=== PATIENT | female | born 1995 | race African-American/Black ===

== ENCOUNTER → 2016-07-01 | Outpatient (CLI) | payer OTHER ==
[~2016-07-01] MED LIST: PRENTAB26 PO
[2016-07-03 15:25] LABS: CHLAMYDIA TRACH RNA*** NOT DETECTED (NOT DETECTED); GC (NEIS GONORRHOEAE)RNA** NOT DETECTED (NOT DETECTED)
== END | disposition home or self-care (01) ==
LOC: C.LABSPEC 15:00
PROVIDERS: ATTEND Obstetrics & Gynecology
DX: Z34.81 Encounter for supervision of other normal pregnancy, first trimester (principal)

== ENCOUNTER → 2016-07-01 | Outpatient (CLI) | payer OTHER | END | disposition home or self-care (01) | LOC: C.PAPS 15:23 | PROVIDERS: ATTEND Obstetrics & Gynecology | DX: Z34.81 Encounter for supervision of other normal pregnancy, first trimester (principal); R87.619 Unspecified abnormal cytological findings in specimens from cervix uteri ==

== ENCOUNTER 2016-09-19 20:49 | Outpatient (CLI) | payer OTHER ==
[~2016-09-19] VITALS: Ht 170.2 cm; Wt 124.7 kg
[2016-09-19 21:17] VITALS: Ht 170.2 cm; Wt 124.7 kg
--- NOTE | 2016-09-19 23:04 | HISTORY & PHYSICAL EXAMINATION ---
DATE OF ADMISSION: 09/19/2016 CHIEF COMPLAINT: Loss of mucus plug, intrauterine 21 weeks 2 days. HISTORY OF PRESENT ILLNESS: The patient is a 21-year-old 2, para 1. Present has been well dated and her due date is 01/28/2017. Her first went to term, she had a for distress. With her present , her first ultrasound showed abdominal contents of the fetus outside the abdominal cavity and she is being scheduled for a high-risk OB visit at [facility] this coming Thursday. She called about 7:00 p.m. the day of admission, stated that she thought she lost her mucus plug. She was then told to come to the hospital for evaluation. MEDICAL HISTORY: She has a boy, 2 years old, in good health. ALLERGIES: No known drug allergies. SURGICAL HISTORY: She had a previous . She has had a T&A and she has had wisdom teeth removed. SOCIAL HISTORY: No smoking. No alcohol intake. FAMILY HISTORY: Mom is 34, father 40. She has got multiple brothers and sisters, all in good health. REVIEW OF SYSTEMS: HEAD: No symptoms of frequent or severe headaches. EYES: No symptoms of blurred vision or double vision. EARS: No symptoms of frequent ear infections, difficulty hearing. PHYSICAL EXAMINATION: GENERAL: Well-developed, well-nourished 21-year-old black female, alert, oriented x3 and cooperative, no acute distress, appears her stated age. EYES: Conjunctivae are pink. Sclerae white. No evidence of jaundice. EARS: Normal light reflex bilaterally. HEART: Regular rhythm. S1 and S2 are normal. LUNGS: Clear to auscultation and percussion. BREASTS: Exam is normal. ABDOMEN: Consistent with a 21-week size fetus. There is no tenderness. Well-healed Pfannenstiel scar. PELVIC: Exam reveals the cervix to be firm, posterior, closed, and at the time of examination, the patient was noted to have a Monilia yeast infection. MUSCULOSKELETAL: Exam reveals no calf tenderness. IMPRESSIONS OF THIS CASE: Previous , previous tonsillectomy and adenoidectomy, previous removal of wisdom teeth. Present complicated by anomaly and rule out early dilatation of the cervix.
== END 2016-09-19 22:05 | disposition home or self-care (01) ==
LOC: C.OPB 20:49 → C.LD 20:49 → C.OPB 22:05
PROVIDERS: ATTEND Obstetrics & Gynecology
DX: O26.893 Other specified pregnancy related conditions, third trimester (principal); O35.9XX0 Maternal care for (suspected) fetal abnormality and damage, unspecified, not applicable or unspecified; Z3A.21 21 weeks gestation of pregnancy

== ENCOUNTER 2016-11-07 20:30 | Outpatient (CLI) | payer OTHER ==
[~2016-11-07] VITALS: Ht 170.2 cm; Wt 127.3 kg
--- NOTE | 2016-11-07 21:55 | DIAGNOSTIC IMAGING REPORT ---
TRANSVAGINAL HISTORY: 21 years-old Female cervical length only per [facility] cervical length study in a patient. Clinical history of gastroschisis. COMPARISON: None available TECHNIQUE: Multiple real-time sonographic images of the pelvis were obtained transvaginally assessing grayscale appearance. FINDINGS: Cervical length is 4.8 cm and is closed. There is trace fluid within the endocervical canal. structure is noted in the lower uterine segment abutting the internal cervical os. No additional pelvic structures were imaged secondary to ordering physician only desiring images of the cervix. IMPRESSION: Mild fluid is noted within a closed cervix which measures up to 4.8 cm in length. The above report was generated using voice recognition software. It may contain grammatical, syntax or spelling errors. Electronically signed by: Car Harper M.D. 11/07/2016 9:53 PM Dictated Date/Time: 11/07/2016 9:51 PM
[2016-11-07 22:17] VITALS: Ht 170.2 cm; Wt 127.3 kg
--- NOTE | 2016-11-07 23:11 | HISTORY & PHYSICAL EXAMINATION ---
DATE OF ADMISSION: 11/07/2016 CHIEF COMPLAINT: Intrauterine at 28 weeks gestation, vaginal spotting. HISTORY OF PRESENT ILLNESS: The patient is a 21-year-old 3, para 1. She had 1 spontaneous AB and she had a for her first delivery because of a tight nuchal cord. Her present has been well dated. Her due date is 01/28/2017. 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 She is also being followed at [facility] and this has been confirmed at [facility] by ultrasound. She is about 28 weeks' gestation. She said she has had some lower pain and spotting, was told to come in to the maternity for evaluation. After arrival in maternity, she was taken to the ultrasound where her cervical length was 4.8 cm. PAST MEDICAL HISTORY: No known drug allergies. PAST SURGICAL HISTORY: She has had a T&A. She has had wisdom teeth removed. She had a . She has a boy 2 years old in good health. She has no significant medical problems. SOCIAL HISTORY: No smoking. No alcohol intake. Works at [employer], goes to school. FAMILY HISTORY: Mom is 38 in good health. Father 40 in good health. 12 brothers and sisters. No significant medical problems. REVIEW OF SYSTEMS: HEAD: No symptoms of frequent or severe headaches. EYES: No symptoms of blurred vision, double vision. EARS: No symptoms of frequent ear infection, difficulty hearing. PHYSICAL EXAMINATION: GENERAL: Well-developed, well-nourished 21-year-old female, alert, oriented x3 and cooperative in no acute distress, appears stated age. EYES: Conjunctivae are pink. Sclerae white. No evidence of jaundice. EARS: Had normal light reflex bilaterally. NOSE: Had normal mucosa. Septum is midline. HEART: Regular rhythm. S1 and S2 are normal. BREASTS: Exam was normal. ABDOMEN: Soft and nontender. No uterine tenderness. No CVA tenderness. Well-healed Pfannenstiel scar. PELVIC: Presenting part floating. Cervix posterior, long, closed, uneffaced, firm. No blood on examining glove. IMPRESSIONS OF THIS CASE: Status post T&A, status post wisdom teeth removal, status post . diagnosis of gastroschisis and rule out premature labor, intrauterine 28 weeks 2 days.
== END 2016-11-07 22:04 | disposition home or self-care (01) ==
LOC: C.OPB 20:30 → C.LD 20:30 → C.OPB 22:04
PROVIDERS: ATTEND Obstetrics & Gynecology
DX: O26.853 Spotting complicating pregnancy, third trimester (principal); O36.8930 Maternal care for other specified fetal problems, third trimester, not applicable or unspecified; Z3A.28 28 weeks gestation of pregnancy

== ENCOUNTER → 2016-12-02 | Outpatient (CLI) | payer OTHER ==
[2016-12-02 15:12] LABS: URINE APPEARANCE TURBID (CLEAR); URINE BILIRUBIN NEG (NEG); URINE COLOR YELLOW; URINE EPITHELIAL CELL AUTO >30 /lpf (0-5); URINE NITRITE NEG (NEG); URINE PH >= 9.0 (4.5-7.5); UROBILINOGEN NEG (NEG)
[2016-12-02 15:14] LABS: MANUAL MICROSCOPIC REQUIRED? NO; REVIEW REQ? NO
== END | disposition home or self-care (01) ==
LOC: C.LABSPEC 14:36
PROVIDERS: ATTEND Obstetrics & Gynecology
DX: R80.9 Proteinuria, unspecified (principal)

== ENCOUNTER 2017-01-16 12:18 | Inpatient (IN) | payer OTHER ==
[~2017-01-16] VITALS: Ht 172.7 cm; Wt 132.0 kg
[~2017-01-16 12:18] MED LIST changes: +CEFAZOLIN IV 3,000 MG in SYRINGE 0 ML IV SCH
[2017-01-16] MEDS ORDERED: LACTATED RINGER'S 1000ML 1,000 ML IV SCH ×2 (12:52→16:55)
[2017-01-16] MEDS ORDERED: LACTATED RINGER'S 1000ML 500 ML IV ONE (12:52)
[2017-01-16 13:28] LABS: MEAN CELL VOLUME 79.9 fL (80-100); MEAN CORPUSCULAR HEMOGLOBIN 27.4 pg (25-34); MEAN CORPUSCULAR HGB CONC 34.3 g/dl (32-36); RED BLOOD COUNT 4.63 M/uL (4.2-5.4); WHITE BLOOD COUNT 9.04 K/uL (4.8-10.8)
[2017-01-16 13:37] LABS: POTASSIUM 3.8 mmol/L (3.5-5.1)
[2017-01-16 14:01] LABS: MEAN PLATELET VOLUME 11.6 fL (7.4-10.4); PLATELET COUNT 103 K/uL (130-400)
[2017-01-16 14:02] LABS: BASO % 0.2 %; BASO ABS # 0.02 K/uL (0-0.2); COMPLETE YES; EOS % 2.1 %; IG% 0.6 %; LYMPH % 20.6 %; LYMPH ABS # 1.86 K/uL (1.2-3.4); MONO % 5.8 %; NEUT % 70.7 %; PLT ESTIMATE DECREASED
[2017-01-16] MEDS ORDERED: CITRIC ACID/SODIUM CITRATE 15 ML UDC PO ONE (14:15)
[2017-01-16] MEDS ORDERED: FENTANYL CITRATE INJ 50 MCG/1 ML 2 ML VIAL ONE (15:02)
[2017-01-16] MEDS ORDERED: MORPHINE SULFATE 1MG/1ML 30ML VIAL IV ONE (15:02)
--- NOTE | 2017-01-16 15:36 | HISTORY & PHYSICAL EXAMINATION ---
DATE OF ADMISSION: 01/16/2017 HISTORY OF PRESENT ILLNESS: The patient is a 21-year-old G2, P1 at 38 and 2 weeks, whose has been complicated by gastroschisis. The patient has been seen by maternal medicine. She had previous section and was scheduled to have trial of labor at [facility] on Thursday01/23/2017. The patient was seen today for routine care in the office. She had an NST which showed tachycardia, 170s. The patient had biophysical profile which was 6 out of 8, breather was absent. The patient was sent to labor and delivery for evaluation. On arrival to labor and delivery, heart rate was in the 170s, viability was rather decreased. She was started on IV fluids. viability has improved and is presently moderate. heart rate is still in the 170s. There is no fever or chills, no rupture of membranes, no bloody show. I spoke to Dr. Green, maternal medicine at [facility] and recommendation is to perform a section and deliver the and have the infant transferred to [facility]. Effort are being made to get the pediatric team at [facility] here before the . While patient had been in labor and delivery, she has had 2 episodes of what appears to be late decelerations, both were successfully done. heart rate continues to be in the 170s with moderate variability. PAST MEDICAL HISTORY: Obesity. PAST SURGICAL HISTORY: 1. She has had 1 section in 2014. 2. History of tonsillectomy. 3. Dental surgery. ALLERGIES: No known drug allergies. SOCIAL HISTORY: The patient denies tobacco, drug or alcohol use. FAMILY HISTORY: Noncontributory. PHYSICAL EXAMINATION: GENERAL: Well-developed, well-nourished black female in no acute distress. HEART: S1, S2, regular rhythm and rate. LUNGS: Clear to auscultation bilaterally. ABDOMEN: Gravid. PELVIC: Fingertip. EXTREMITIES: No cyanosis, clubbing or edema. ASSESSMENT AND PLAN: A 21-year-old 2, para 1 at 38 and 2 weeks, status post gastroschisis. heart rate shows tachycardia. The patient has had previous section. The patient was originally scheduled for delivery in [place], I have spoken to maternal medicine, recommendation is to perform a section and attempts are being made to get the pediatric NICU team here at [facility] to care MTDD
[2017-01-16] MEDS ORDERED: MISOPROSTOL 200 MCG TAB ONE (16:40)
[2017-01-16] MEDS ORDERED: OXYTOCIN INJ 10 UNITS/ML VIAL ONE (16:49)
[2017-01-16] MEDS ORDERED: KETOROLAC TROMETHAMINE 30 MG/ML VIAL ONE (16:49)
[2017-01-16] MEDS ORDERED: OXYTOCIN INJ 20 UNITS in LACTATED RINGER'S 1000ML 1,000 ML IV SCH (16:55)
[2017-01-16] MEDS ORDERED: HYDROCORTISONE ACETATE 25 MG SUPP PR PRN (17:00)
[2017-01-16] MEDS ORDERED: MAGNESIUM HYDROXIDE SUSP 30 ML UDC PO PRN (17:00)
[2017-01-16] MEDS ORDERED: SENNA 8.6 MG TAB PO PRN (17:00)
[2017-01-16] MEDS: SIMETHICONE 80 MG CHEW PO SCH ×3 (17:00→20:44)
[2017-01-16] MEDS ORDERED: SUPERCREAM 0.870 % 15GM JAR EXT PRN (17:00)
[2017-01-16] MEDS ORDERED: BENZOCAINE 20% AER SPR 82.5 GM CAN EXT PRN (17:00)
[2017-01-16] MEDS ORDERED: LANOLIN OINT EXT PRN ×2 (17:00)
[2017-01-16 19:14] VITALS: Ht 172.7 cm; Wt 132.0 kg
[2017-01-16 20:00] VITALS: O2SAT 97
[2017-01-16] MEDS ORDERED: SODIUM CHLORIDE 0.9% 1000ML 1,000 ML IV PRN (20:01)
[2017-01-16] MEDS ORDERED: NALOXONE HCL INJ 1 MG in SODIUM CHLORIDE 0.9% 1000ML 1,000 ML IV PRN (20:01)
[2017-01-16] MEDS ORDERED: NALOXONE HCL INJ 0.08 MG in SYRINGE 1.8 ML IV PRN (20:01)
[2017-01-16] MEDS ORDERED: LACTATED RINGER'S 1000ML 500 ML IV PRN (20:01)
--- NOTE | 2017-01-16 20:14 | Anesthesiology Progress Note ---
Anesthesia Post Op Note Date & Time Jan 16, 2017 at 20:14 Notes Mental Status: alert / awake / arousable, participated in evaluation Pt Amnestic to Procedure: Yes Nausea / Vomiting: adequately controlled Pain: adequately controlled Airway Patency, RR, SpO2: stable & adequate BP & HR: stable & adequate Hydration State: stable & adequate Neuraxial Anesthesia: was administered, sensory block is resolving Anesthetic Complications: no major complications apparent
[2017-01-16] MEDS ORDERED: PROMETHAZINE HCL INJ 25 MG in SODIUM CHLORIDE 0.9% 50ML 50 ML IV PRN (20:15)
[2017-01-16] MEDS ORDERED: NALBUPHINE HCL INJ 10 MG/ML AMP IV PRN (20:15)
[2017-01-16] MEDS ORDERED: NO NARCOTICS OR SEDATIVES SCH (20:15)
[2017-01-16] MEDS ORDERED: KETOROLAC TROMETHAMINE 30 MG/ML VIAL IV. PRN (20:15)
[2017-01-16] MEDS ORDERED: ONDANSETRON INJ 2 MG/ML 2 ML VIAL IV PRN (20:15)
[2017-01-16] MEDS ORDERED: NALOXONE HCL 0.4 MG/1 ML VIAL/CARP IV PRN (20:15)
[2017-01-16] MEDS ORDERED: MoRPHine SULFATE PF 1 MG/ML 10 ML AMP/VIAL EPI PRN (20:15)
[2017-01-16] MEDS ORDERED: EpHEDrine SULFATE INJ 50 MG/ML AMP IV PRN (20:15)
[2017-01-16] MEDS ORDERED: DiphenhydrAMINE HCL 50 MG/ML VIAL IV PRN (20:15)
[2017-01-16] MEDS ORDERED: MoRPHine SULFATE 2 MG/ML CARP IV PRN (20:15)
[2017-01-16 20:30] VITALS: BP 127/68; PULSE 77; TEMP 36.8; O2SAT 99
[2017-01-16] MEDS: DOCUSATE SODIUM 100 MG CAP PO SCH (20:44)
[2017-01-16] MEDS: DiphenhydrAMINE HCL 50 MG/ML VIAL IV PRN (20:45)
[2017-01-16 21:00] VITALS: O2SAT 98
--- NOTE | 2017-01-16 21:57 | OPERATIVE REPORT ---
DATE OF OPERATION: 01/16/2017 INDICATION FOR SURGERY: This is a 21-year-old G2, P2, at 38+ weeks. The fetus has a known gastroschisis and was scheduled to be induced at [facility] on 01/21/2017. The patient was seen in the office today. heart rate showed tachycardia, BPP was 8/8. Decision was, therefore, made to admit the patient in labor and delivery. This was reviewed with maternal medicine in [place] and the recommendation was to perform section. The NICU team from [place] was here for this . PREOPERATIVE DIAGNOSES: 1. at term. 2. Fetus with gastroschisis. 3. Nonreassuring heart rate. POSTOPERATIVE DIAGNOSES: Same plus thick meconium. SURGEON: Marvel Graves MD. ADMINISTRATIVE OFFICE ASSISTANT: Dr. Dewey. ESTIMATED BLOOD LOSS: 1000 mL IV FLUIDS: 1500 mL URINE: 400 mL clear urine at the end of the procedure. FINDINGS: Live infant. Weight and Apgars are in the pediatric record. Baby has bowels outside the abdomen. Uterus, adnexa are all within normal. COMPLICATIONS: None. DRAINS: None. PATHOLOGY: Cord gas, cord blood and placenta. DISPOSITION: Stable to recovery room. DESCRIPTION OF PROCEDURE: The patient was taken to the operating room where she was prepped and draped in normal sterile fashion. Timeout was called. A Pfannenstiel incision was made and carried down to the fascia. Fascia was incised in the midline and extended laterally on both sides. The fascia was dissected off the rectus abdominus muscle. Peritoneum was identified. Abdomen was entered. Once inside the abdomen, an Piotr retractor was placed in the abdomen for retraction. Vesicouterine peritoneum was dissected off the lower segment of the uterus. A transverse incision was made on the uterus and extended laterally on both sides. Infant was delivered atraumatically, cord clamped, and handed over to the awaiting pediatric team. Placenta was manually removed. Uterus was exteriorized and cleared of all clots and debris. Uterus was closed in 2 layers with 0 Vicryl. There was good hemostasis at the end of the closure. Adnexa and both ovaries were seen, identified and appeared grossly normal. The vesicouterine peritoneum was closed with plain suture. Copious amount of irrigation was used to irrigate the abdomen. The Piotr retractor was removed and peritoneum was closed in a running fashion with plain suture. [id number] sutures were used to approximate the rectus abdominus muscle. Fascia was closed in a running fashion using PDS suture. Copious amount of irrigation was used to irrigate the subcu space, plain suture used to reapproximate the subcu space and skin was closed with ann. All instruments were removed from the abdomen and accounted for x2 including sponges and needles. The patient was sent to recovery in stable condition. I attest to the content of the Intraoperative Record and any orders documented therein. Any exception s are noted below.
[2017-01-16 22:00] VITALS: O2SAT 98
[2017-01-16] MEDS: MEPERIDINE HCL 25 MG/ML CARP IV PRN (22:11)
[2017-01-16 23:00] VITALS: O2SAT 97
[2017-01-17] VITALS (14 sets, daily range): BP systolic 114–133; BP diastolic 50–82; PULSE 80–92; TEMP 36.5–37.2; O2SAT 97–100
[2017-01-17] MEDS: MEPERIDINE HCL 25 MG/ML CARP IV PRN (03:25)
[2017-01-17] MEDS: DiphenhydrAMINE HCL 50 MG/ML VIAL IV PRN (03:26)
[2017-01-17 06:20] LABS: HEMATOCRIT 34.8 % (37-47); MEAN CORPUSCULAR HEMOGLOBIN 26.4 pg (25-34); RED BLOOD COUNT 4.35 M/uL (4.2-5.4); WHITE BLOOD COUNT 10.13 K/uL (4.8-10.8)
[2017-01-17 06:21] LABS: MEAN PLATELET VOLUME 11.6 fL (7.4-10.4); PLATELET COUNT 76 K/uL (130-400)
[2017-01-17 07:17] LABS: BASO % 0.1 %; BASO ABS # 0.01 K/uL (0-0.2); COMPLETE YES; IG% 0.3 %; LYMPH % 12.6 %; LYMPH ABS # 1.28 K/uL (1.2-3.4); MONO % 7.1 %; NEUT % 78.9 %
[2017-01-17] MEDS: SIMETHICONE 80 MG CHEW PO SCH ×4 (07:47→19:28)
[2017-01-17] MEDS: DOCUSATE SODIUM 100 MG CAP PO SCH ×2 (07:47→19:28)
[2017-01-17] MEDS: FERROUS SULFATE 325 MG TAB PO SCH (07:47)
--- NOTE | 2017-01-17 08:37 | OB/GYN Progress Note ---
PHOTOGRAMMETRIC TECHNICIAN Progress Note Date of Service: Jan 17, 2017. Patient is seen and examined. She feels well, no complaints. Pain is under control with meds. Not OOB yet Leon catheter is in Tolerating clear diet with out N&V Flatus neg BM neg Bleeding is minimal No fever/ chills/ CP/ SOB/ N&V/ Leg pain Plans to breast feed, pumping now Her baby was transferred to [facility] NICU for gastroschisis Date Time Temp Pulse Resp B/P (MAP) Pulse Ox O2 Delivery O2 Flow Rate FiO2 01/17/17 06:00 18 98 01/17/17 05:00 18 97 01/17/17 04:10 36.8 92 18 132/79 (96) 98 Room Air 01/17/17 04:00 18 97 01/17/17 03:00 18 97 01/17/17 02:00 18 97 01/17/17 01:00 16 98 01/17/17 00:00 16 97 01/17/17 00:00 36.9 84 18 130/82 (98) 98 Room Air 01/16/17 23:00 16 97 01/16/17 22:00 18 98 01/16/17 21:00 16 98 01/16/17 20:30 36.8 77 16 127/68 (87) 99 Room Air 01/16/17 20:00 18 97 PE: General: Alert, orientedx3, NAD CVS: S1S2 RRR Lungs; CTAB Abd: soft, NT, BS+, ND, fundus firm, below Umbilicus Dressing: Clean, dry, intact Perineum intact, Lochia rubra minimal Ext; NT, no edema AP: 21 yo s/p C Section, pod# 1 VSS Afebrile doing well Continue routine postop care Encourage ambulation, PO intake All questions were answered
[2017-01-17] MEDS ORDERED: DiphenhydrAMINE HCL 50 MG/ML VIAL IV PRN (09:00)
[2017-01-17] MEDS ORDERED: PROMETHAZINE HCL INJ 25 MG in SODIUM CHLORIDE 0.9% 50ML 50 ML IV PRN (09:00)
[2017-01-17] MEDS ORDERED: ONDANSETRON INJ 2 MG/ML 2 ML VIAL IV PRN (09:00)
[2017-01-17] MEDS ORDERED: KETOROLAC TROMETHAMINE 30 MG/ML VIAL IV. PRN (09:00)
[2017-01-17] MEDS ORDERED: OXYCODONE/ACETAMINOPHEN 5-325 TAB PO PRN (09:00)
[2017-01-17] MEDS ORDERED: MEPERIDINE HCL 50 MG/ML CARP IV PRN ×2 (09:00)
[2017-01-17] MEDS ORDERED: DC INTRASPINAL MORPHINE ONE (09:00)
[2017-01-17] MEDS: IBUPROFEN 600 MG TAB PO PRN ×3 (09:15→22:10)
[2017-01-17] MEDS: OXYCODONE/ACETAMINOPHEN 5-325 TAB PO PRN ×2 (09:15→14:03)
[2017-01-17] MEDS ORDERED: BISACODYL 5 MG TABEC PO ONE (22:00)
[2017-01-18] MEDS: OXYCODONE/ACETAMINOPHEN 5-325 TAB PO PRN ×3 (00:04→08:09)
[2017-01-18 00:05] VITALS: BP 117/77; PULSE 92; TEMP 36.6; O2SAT 98
[2017-01-18] MEDS: IBUPROFEN 600 MG TAB PO PRN ×2 (03:04→08:11)
[2017-01-18 03:20] LABS: URINE APPEARANCE CLEAR (CLEAR); URINE BILIRUBIN NEG (NEG); URINE COLOR YELLOW; URINE NITRITE NEG (NEG); URINE SPECIFIC GRAVITY 1.012 (1.000-1.030); UROBILINOGEN NEG (NEG); ZZUR CULT IF INDIC CLEAN CATCH NO
[2017-01-18 03:25] LABS: MANUAL MICROSCOPIC REQUIRED? NO; REVIEW REQ? NO
[2017-01-18 07:11] LABS: HEMATOCRIT 32.7 % (37-47)
[2017-01-18 07:43] VITALS: BP 101/53; PULSE 75; TEMP 36.7
[2017-01-18] MEDS: SIMETHICONE 80 MG CHEW PO SCH (08:06)
[2017-01-18] MEDS: DOCUSATE SODIUM 100 MG CAP PO SCH (08:08)
[2017-01-18] MEDS: FERROUS SULFATE 325 MG TAB PO SCH (08:08)
--- NOTE | 2017-01-18 09:47 | OB/GYN Progress Note ---
HOSPITAL CHIEF EXECUTIVE OFFICER Progress Note Date of Service: Jan 18, 2017. Patient is seen and examined. She feels well, no complaints. Likes to be discharged so that she can go and see her baby at [facility] She is having surgery this morning Pain is under control with oral meds. Ambulating without dizziness Voiding without difficulty Tolerating regular diet with out N&V Flatus + BM neg Bleeding is minimal No fever/ chills/ CP/ SOB/ N&V/ Leg pain Pumping breast milk Date Time Temp Pulse Resp B/P (MAP) Pulse Ox O2 Delivery O2 Flow Rate FiO2 01/18/17 07:43 36.7 75 18 101/53 (69) Room Air 01/18/17 00:05 36.6 92 20 117/77 (90) 98 Room Air 01/18/17 00:05 98 Room Air 01/17/17 16:40 36.5 87 16 114/50 (71) 100 Room Air 01/17/17 16:40 100 Room Air 01/17/17 12:00 36.7 80 24 133/79 (97) 98 Room Air Last 24 Hours Test 01/18/17 03:05 01/18/17 06:48 Urine Color YELLOW Urine Appearance CLEAR Urine pH 5.0 Urine Specific Ruth 1.012 Urine Protein NEG Urine Glucose (UA) NEG Urine Ketones NEG Urine Occult Blood 1+ Urine Nitrite NEG Urine Bilirubin NEG Urine Urobilinogen NEG Urine Leukocyte Esterase NEG Urine WBC (Auto) 1-5 /hpf Urine RBC (Auto) 0-4 /hpf Urine Hyaline Casts (Auto) 1-5 /lpf Urine Epithelial Cells (Auto) 5-10 /lpf Urine Bacteria (Auto) NEG Hemoglobin 10.8 g/dL Hematocrit 32.7 % PE: General: Alert, orientedx3, NAD CVS: S1S2 RRR Lungs; CTAB Abd: soft, NT, ND, BS+, fundus firm, below Umbilicus Incision: Clean, dry, intact Perineum intact, Lochia rubra minimal Ext; NT, no edema AP: 21 yo s/p C Section, pod# 2 VSS Afebrile doing well Continue routine postop care Encourage ambulation, PO intake All questions were answered Instructions were given when to call D/C home , f/u in office
[2017-01-18] MEDS ORDERED: OXYC-57 PO (09:49)
[2017-01-18] MEDS ORDERED: MTR600X PO (09:49)
--- NOTE | 2017-01-18 09:50 | Discharge Instructions ---
Discharge Instructions Date of Service Jan 18, 2017. Admission Reason for Admission: NST Discharge Discharge Diagnosis / Problem: RCS Discharge Goals Goal(s): Routine recovery after Medications Continue Dispensed Medications: lansinoh Activity Recommendations Activity Limitations: as noted below ACTIVITY RECOMMENDATIONS: * Gradual return to full activity over the next 2-3 weeks. * No lifting - nothing heavier than baby over the next 2-3 weeks. * Do not engage in vigorous exercise, sexual activity or sports until cleared by your physician. * Do not drive or operate any motorized equipment until cleared by your physician. * You may shower/bathe daily. BREAST CARE: If you are not breast feeding: * Wear a supportive bra 24 hours a day for one to two weeks. * Avoid stimulating your breasts and nipples as much as possible during the first few weeks after delivery. * When taking a shower, have the warm water hit your back, not breasts. * When your breasts feel full, apply ice packs. Usually three to four times a day helps ease the discomfort. * Take a mild pain medication (Tylenol/Motrin) when you are uncomfortable. If breast feeding: * Use breast milk to lubricate nipples. Lansinoh cream may be used for sore nipples. You do not need to remove cream prior to breast feeding. If using a different brand of cream, check the label for directions regarding removal of cream prior to nursing. * Wear a supportive bra. * If having problems with breasts or breast feeding, call a senior consultant or your health care provider. OVER THE COUNTER MEDICATION: * For discomfort or pain, you may use Acetaminophen (Tylenol), Ibuprofen (Advil ), or Naproxen (Aleve) following the package directions. * For constipation you may use Colace following the package directions. SPECIAL CARE INSTRUCTIONS: When you are discharged from the hospital, it is important for you to follow the instructions listed below: * During the first week at home, you should be able to care for yourself and your baby. In addition, the usual light household activities are encouraged. * Limit your activities to the way you feel. Do not try to clean the house or move furniture. Be sensible. * If you actively engage in sports and have done so up until the time of your delivery, you may resume these activities as soon as you feel able. This may take up to one month or even longer. Use good judgment. * Continue to take your vitamins for at least six weeks after the of your baby. * Your diet need not be limited unless you were on a special diet before your delivery. Breast-feeding mothers need around 2500 calories per day and at least 64-80 ounces of fluid per day (8 to 10 glasses). * You should eat foods from the four major food groups. Crash diets or fad diets are to be avoided. Eating lean meats, fresh fruits and vegetables, low-fat dairy products, high fiber foods and a regular exercise program, will help you get back to your pre- weight without putting your health at risk. * Constipation is sometimes a problem after delivery. Take a mild laxative as needed. If breast feeding, Milk of Magnesia is acceptable to use. You may use a suppository or Fleets enema if no episiotomy. * A daily shower or tub bath is suggested. Be sure to thoroughly and gently dry the perineum. * A bloody vaginal discharge will usually continue until around four weeks post . A small amount of bleeding may continue for as long as six weeks. Vaginal discharge changes from the bright red bleeding after delivery to pink then brownish and finally yellowish-pink before becoming white and disappearing. * Bleeding may increase with activity. Your first period may come in 4-8 weeks. If you are breast feeding, your period may be delayed even longer. * [place] (sex) can begin whenever both you and your partner feel comfortable and do not have any form of genital infection. It is recommended that you wait at least six weeks for internal and external healing to occur. If you have questions, please talk to your health care practitioner. A condom should be used to prevent infection and . * Foreplay, gentle intercourse and lubrication is very important the first several times to prevent pain. A water-based lubricant such as K-Y jelly or Astroglide may be used. * Tampons and/or Douching should be avoided until after six weeks check-up. * If you have RH negative blood and your baby is RH positive, you will receive RHOGAM by injection prior to discharge. The nurse will give you a card to keep with you that has the date and place that you received RHOGAM after delivery. * During your care, you had a Rubella screen done to check for the presence of rubella antibodies in your blood. If your test was negative, you will receive a Rubella vaccine prior to discharge. This vaccine may cause a fever, soreness at the injection site and flu-like symptoms. If these symptoms persist, notify your health care practitioner. is not advised for three months after a Rubella vaccine. * Verbalizes understanding of car seat law as reviewed with patient nursing. * Car Seat hand-out given and reviewed with patient by nursing. * Shaken baby information reviewed with patient by nursing. Call you doctor if: * Heavy bleeding (saturating several pads an hour) or passing clots the size of your fist. * A fever >101 degrees F (38.3 degrees C) on two occasions four hours apart and /or chills. * Unusual pain in the pelvic or vaginal areas. Pain should improve each day . * Call the doctor for any increased redness, drainage or swelling around the incision and any pain unrelieved by prescribed pain medication. * Any signs or symptoms of phlebitis (possible blood clots forming in the veins ): leg pain, warm, red or swollen area on leg. * "Baby Blues" lasting longer than two weeks. If you have any questions or concerns, call your health care practitioner at . FOLLOW-UP VISIT: * Incision check (staple removal) in 1 week. Please call doctor's office at to set up appointment. * Please call the office at to schedule a 6 week examination. It is important you keep this appointment. * It is important for you to make arrangements for either yearly or twice yearly check-ups thereafter. . Current Hospital Diet Patient's current hospital diet: Regular OB Diet Discharge Diet Recommended Diet: Regular Diet Procedures Procedures Performed: Section with Pending Studies Studies pending at discharge: no Medical Emergencies . Who to Call and When: Medical Emergencies: If at any time you feel your situation is an emergency, please call 911 immediately. . Non-Emergent Contact Non-Emergency issues call your: Surgeon Call Non-Emergent contact if: you have a fever, temperature is above 100.5, your pain is not controlled, your pain is worsening, wound has increased drainage, wound has increased redness, wound has increased pain . . "Provider Documentation" section prepared by Ten Dave. . VTE Core Measure Inpt VTE Proph given/why not?: Treatment not indicated
[2017-01-18] MEDS ORDERED: MISC-696 (10:30)
[2017-01-18 11:15] VITALS: BP_DIAS 53; PULSE 75; TEMP 36.7
[2017-01-18] MEDS ORDERED: BISACODYL 10 MG SUPP PR PRN (17:00)
== END 2017-01-18 11:31 | disposition home or self-care (01) | DRG 766 ==
LOC: C.LD 12:18 → C.OPB 12:18 → C.LD 14:05 → C.OPB 14:05 → C.OBG 18:43
PROVIDERS: ADMIT Obstetrics & Gynecology; ATTEND Obstetrics & Gynecology
PROC: 10D00Z1 Extraction of Products of Conception, Low, Open Approach (ICD-10-PCS; principal; 2017-01-16 14:55)
DX: O76 Abnormality in fetal heart rate and rhythm complicating labor and delivery (principal); O36.8930 Maternal care for other specified fetal problems, third trimester, not applicable or unspecified; O77.0 Labor and delivery complicated by meconium in amniotic fluid; O99.214 Obesity complicating childbirth; E66.9 Obesity, unspecified; Z3A.38 38 weeks gestation of pregnancy; Z37.0 Single live birth

== ENCOUNTER 2017-06-05 18:18 | Emergency (ER) | payer SELFPAY ==
[~2017-06-05] VITALS: Ht 170.2 cm; Wt 117.4 kg
[~2017-06-05 18:18] MED LIST changes: -CEFAZOLIN IV 3,000 MG in SYRINGE 0 ML IV SCH; +MISC-836; +MTR600X PO; +OXYC-57 PO
[2017-06-05 18:20] VITALS: TEMP 36.7; Ht 170.2 cm; Wt 117.4 kg
[2017-06-05] MEDS ORDERED: SODIUM CHLORIDE 0.9% 1000ML 1,000 ML IV STA (18:30)
[2017-06-05] MEDS ORDERED: ONDANSETRON INJ 2 MG/ML 2 ML VIAL IV STA (18:30)
[2017-06-05] MEDS ORDERED: HYOSCYAMINE SULFATE 0.125 MG SL TAB SL STA (18:30)
[2017-06-05 18:51] LABS: BASO % 0.2 %; BASO ABS # 0.02 K/uL (0-0.2); EOS % 3.4 %; EOS ABS # 0.42 K/uL (0-0.5); HEMOGLOBIN 14.3 g/dL (12.0-16.0); IG# 0.02 K/uL (0.00-0.02); LYMPH % 22.8 %; LYMPH ABS # 2.79 K/uL (1.2-3.4); MEAN CORPUSCULAR HGB CONC 33.3 g/dl (32-36); MEAN PLATELET VOLUME 11.6 fL (7.4-10.4); MONO % 6.8 %; MONO ABS # 0.83 K/uL (0.11-0.59); NEUT % 66.6 %; NEUT ABS # 8.17 K/uL (1.4-6.5); PLATELET COUNT 206 K/uL (130-400); RED CELL DISTRIBUTION WIDTH CV 13.8 % (11.5-14.5); RED CELL DISTRIBUTION WIDTH SD 39.1 fL (36.4-46.3); WHITE BLOOD COUNT 12.25 K/uL (4.8-10.8)
[2017-06-05 19:08] LABS: ALBUMIN 3.9 gm/dl (3.4-5.0); ALT/SGPT 20 U/L (12-78); AST/SGOT 11 U/L (15-37); BLOOD UREA NITROGEN 9 mg/dl (7-18); CALCIUM 8.9 mg/dl (8.5-10.1); CARBON DIOXIDE 24 mmol/L (21-32); CREATININE 0.79 mg/dl (0.60-1.20); GLUCOSE 82 mg/dl (70-99); LIPASE 119 U/L (73-393); POTASSIUM 3.6 mmol/L (3.5-5.1); SODIUM 139 mmol/L (136-145)
[2017-06-05 19:11] LABS: ALKALINE PHOSPHATASE 121 U/L (45-117); TOTAL PROTEIN 7.9 gm/dl (6.4-8.2)
[2017-06-05] MEDS ORDERED: KETOROLAC TROMETHAMINE 30 MG/ML VIAL IV STA (19:13)
--- NOTE | 2017-06-05 20:02 | DIAGNOSTIC IMAGING REPORT ---
CT SCAN OF THE ABDOMEN AND PELVIS WITHOUT IV CONTRAST CLINICAL HISTORY: Left flank pain. COMPARISON STUDY: No priors. TECHNIQUE: CT scan of the abdomen and pelvis is performed from the lung bases to the proximal femora. Images are reviewed in the axial, sagittal, and coronal planes. IV contrast was not administered for this examination as per the referring clinician. A dose lowering technique was utilized adhering to the principles of ALARA. CT DOSE: 1521.17 mGy.cm FINDINGS: Lung bases: The heart is normal in size and without pericardial effusion. The lung bases are clear. Liver: The unenhanced liver is normal in size, contour, and attenuation. There is no intrahepatic biliary ductal dilatation. Gallbladder: Unremarkable. Spleen: Normal in size and attenuation. Pancreas: Unremarkable. Adrenal glands: Unremarkable. Kidneys: The unenhanced kidneys are normal in size and without hydronephrosis. There are no renal calculi identified. There is no evidence of contour deforming renal mass lesion. Abdominal vasculature: The abdominal aorta is normal in course and caliber. Bowel: The small bowel and colon are normal in course and caliber. The appendix is well-visualized and normal. Peritoneum: There is no intraperitoneal free air or abdominal ascites. There is a small fat-containing umbilical hernia. Lymphadenopathy: None. Pelvic viscera: The bladder, uterus, and adnexa are normal as visualized. A dominant follicle in the left ovary measures up to 2.9 cm. Trace free fluid is present in the cul-de-sac. Skeletal structures: No lytic or blastic lesions are seen. IMPRESSION: 1. There are no acute infectious or inflammatory findings in the abdomen or pelvis. 2. Trace free fluid in the cul-de-sac is likely within physiologic limits. Electronically signed by: Stu Benitez M.D. 06/05/2017 8:01 PM Dictated Date/Time: 06/05/2017 7:57 PM
[2017-06-05 22:55] VITALS: BP 106/56; PULSE 60; O2SAT 98
[2017-06-05] MEDS ORDERED: HYOS1TAB PO (22:55)
--- NOTE | 2017-06-06 01:08 | EMERGENCY ROOM VISIT NOTE ---
History Report prepared by Raymon: Paul Jean Under the Supervision of: Dr. Holden Hendrix M.D. First contact with patient: 18:23 Chief Complaint: ABDOMINAL PAIN Stated Complaint: SULFUR BURPS, PAIN IN STOMACH AND BACK, DIARRHEA History of Present Illness The patient is a 22 year old female who presents to the Emergency Room with complaints of intermittent abdominal pain starting two days ago. She rates her discomfort as a 6/10 in severity. The patient states she has been experiencing "sulfur burps" for the last two years. She reports that whenever she burps she notices it smells like rotten eggs. The patient states she usually takes Tums or Pepto Bismol for her burps, which usually helps alleviate her symptoms. She reports that for the last couple of days, taking Tums or Pepto Bismol has not been helping. The patient states that the burps have been making her nauseous and vomit recently as well. She reports starting two days ago she developed abdominal pain that "feels as if I'm going into labor". The patient states the pain is located around her mid abdomen into her left side. She reports the pain wraps around into her lower back. She states the abdominal pain has been coming and going. The patient states her abdominal pain has been accompanied by diarrhea, which also started two days ago. She reports her stool has been loose and watery. The patient states her abdominal pain was so severe when she arrived at the ER she did not want to get out of the car. She reports that when she was able to start moving, her abdominal pain was not as severe. The patient denies blood in stool, fever, urinary symptoms, abnormal vaginal discharge or bleeding, possible , coughing, chest pain, shortness of breath. She reports she has had C-Sections in the past, but denies any other pertinent past medical or surgical history. Source of History: patient Onset: two days ago Position: abdomen (mid-left side) Symptom Intensity: 6/10 Quality: other (Labor cramps) Timing: intermittent Associated Symptoms: + nausea, + vomiting, + back pain, + diarrhea, No fevers, No cough, No chest pain, No SOB, No urinary symptoms Note: Associated symptoms: "sulfur burps" Denies: vaginal discharge, vaginal bleeding, blood in stool Review of Systems See HPI for pertinent positives & negatives. A total of 10 systems reviewed and were otherwise negative. Past Medical & Surgical Medical Problems: (1) tachycardia (2) Gastroschisis (3) Family History Patient reports no known family medical history. Social History Smoking Status: Current Every Day Smoker Housing Status: lives with family Occupation Status: employed Current/Historical Medications Scheduled PRN Hyoscyamine Sulfate (Levsin), 0.125 MG PO Q6 PRN for Pain Allergies Coded Allergies: No Known Allergies (Unverified , 06/05/17) Physical Exam Vital Signs Date Time Temp Pulse Resp B/P (MAP) Pulse Ox O2 Delivery O2 Flow Rate FiO2 06/05/17 22:55 60 16 106/56 98 Room Air 06/05/17 22:16 61 16 99/45 99 Room Air 06/05/17 20:27 65 16 108/64 100 Room Air 06/05/17 19:23 71 18 105/71 99 Room Air 06/05/17 18:20 36.7 100 18 137/85 99 Room Air Physical Exam Constitutional: Vital signs reviewed. Eyes: Pupils are equal round reactive to light. Conjunctiva are noninjected. ENT: Pharynx is clear without erythema or exudate. Mucous membranes are moist. Neck supple without meningeal signs. Respiratory: Clear to auscultation bilaterally. Breath sounds are equal bilaterally. Cardiovascular: Regular rate and rhythm. No rubs or gallops. GI: Soft, nondistended and nontender. Bowel sounds are present. Musculoskeletal: No peripheral edema. No CVA tenderness. Integumentary: No cyanosis. Neurological: The patient is awake and alert. No focal deficits. Psychiatric: Normal affect. Medical Decision & Procedures ER Provider Diagnostic Interpretation: Radiology results as stated below per my review and the radiologist's interpretation: CT SCAN OF THE ABDOMEN AND PELVIS WITHOUT IV CONTRAST CLINICAL HISTORY: Left flank pain. COMPARISON STUDY: No priors. TECHNIQUE: CT scan of the abdomen and pelvis is performed from the lung bases to the proximal femora. Images are reviewed in the axial, sagittal, and coronal planes. IV contrast was not administered for this examination as per the referring clinician. A dose lowering technique was utilized adhering to the principles of ALARA. CT DOSE: 1521.17 mGy.cm FINDINGS: Lung bases: The heart is normal in size and without pericardial effusion. The lung bases are clear. Liver: The unenhanced liver is normal in size, contour, and attenuation. There is no intrahepatic biliary ductal dilatation. Gallbladder: Unremarkable. Spleen: Normal in size and attenuation. Pancreas: Unremarkable. Adrenal glands: Unremarkable. Kidneys: The unenhanced kidneys are normal in size and without hydronephrosis. There are no renal calculi identified. There is no evidence of contour deforming renal mass lesion. Abdominal vasculature: The abdominal aorta is normal in course and caliber. Bowel: The small bowel and colon are normal in course and caliber. The appendix is well-visualized and normal. Peritoneum: There is no intraperitoneal free air or abdominal ascites. There is a small fat-containing umbilical hernia. Lymphadenopathy: None. Pelvic viscera: The bladder, uterus, and adnexa are normal as visualized. A dominant follicle in the left ovary measures up to 2.9 cm. Trace free fluid is present in the cul-de-sac. Skeletal structures: No lytic or blastic lesions are seen. IMPRESSION: 1. There are no acute infectious or inflammatory findings in the abdomen or pelvis. 2. Trace free fluid in the cul-de-sac is likely within physiologic limits. Electronically signed by: Stu Benitez M.D. 06/05/2017 8:01 PM Dictated Date/Time: 06/05/2017 7:57 PM Laboratory Results 06/05/17 18:36 Red Blood Count 5.51, Mean Corpuscular Volume 78.0, Mean Corpuscular Hemoglobin 26.0, Mean Corpuscular Hemoglobin Concent 33.3, Mean Platelet Volume 11.6, Neutrophils (%) (Auto) 66.6, Lymphocytes (%) (Auto) 22.8, Monocytes (%) (Auto) 6.8, Eosinophils (%) (Auto) 3.4, Basophils (%) (Auto) 0.2, Neutrophils # (Auto) 8.17, Lymphocytes # (Auto) 2.79, Monocytes # (Auto) 0.83, Eosinophils # (Auto) 0.42, Basophils # (Auto) 0.02 06/05/17 18:36 Test 06/05/17 18:36 06/05/17 22:35 White Blood Count 12.25 K/uL (4.8-10.8) Red Blood Count 5.51 M/uL (4.2-5.4) Hemoglobin 14.3 g/dL (12.0-16.0) Hematocrit 43.0 % (37-47) Mean Corpuscular Volume 78.0 fL (80-100) Mean Corpuscular Hemoglobin 26.0 pg (25-34) Mean Corpuscular Hemoglobin Concent 33.3 g/dl (32-36) Platelet Count 206 K/uL (130-400) Mean Platelet Volume 11.6 fL (7.4-10.4) Neutrophils (%) (Auto) 66.6 % Lymphocytes (%) (Auto) 22.8 % Monocytes (%) (Auto) 6.8 % Eosinophils (%) (Auto) 3.4 % Basophils (%) (Auto) 0.2 % Neutrophils # (Auto) 8.17 K/uL (1.4-6.5) Lymphocytes # (Auto) 2.79 K/uL (1.2-3.4) Monocytes # (Auto) 0.83 K/uL (0.11-0.59) Eosinophils # (Auto) 0.42 K/uL (0-0.5) Basophils # (Auto) 0.02 K/uL (0-0.2) RDW Standard Deviation 39.1 fL (36.4-46.3) RDW Coefficient of Variation 13.8 % (11.5-14.5) Immature Granulocyte % (Auto) 0.2 % Immature Granulocyte # (Auto) 0.02 K/uL (0.00-0.02) Urine Test NEG (NEG) Anion Gap 8.0 mmol/L (3-11) Est Creatinine Clear Calc Drug Dose 146.7 ml/min Estimated GFR () 122.3 Estimated GFR (Non- 105.5 BUN/Creatinine Ratio 10.7 (10-20) Calcium Level 8.9 mg/dl (8.5-10.1) Total Bilirubin 0.3 mg/dl (0.2-1) Direct Bilirubin < 0.1 mg/dl (0-0.2) Aspartate Amino Transf (AST/SGOT) 11 U/L (15-37) Alanine Aminotransferase (ALT/SGPT) 20 U/L (12-78) Alkaline Phosphatase 121 U/L (45-117) Total Protein 7.9 gm/dl (6.4-8.2) Albumin 3.9 gm/dl (3.4-5.0) Lipase 119 U/L (73-393) Urine Color YELLOW Urine Appearance CLEAR (CLEAR) Urine pH 5.5 (4.5-7.5) Urine Specific [place] 1.011 (1.000-1.030) Urine Protein NEG (NEG) Urine Glucose (UA) NEG (NEG) Urine Ketones NEG (NEG) Urine Occult Blood NEG (NEG) Urine Nitrite NEG (NEG) Urine Bilirubin NEG (NEG) Urine Urobilinogen NEG (NEG) Urine Leukocyte Esterase NEG (NEG) Laboratory results as reviewed by me. Medications Administered Medications (Trade) Dose Ordered Sig/Cassidy Route Start Time Stop Time Status Last Admin Dose Admin Ondansetron HCl (Zofran Inj) 4 mg NOW STAT IV 06/05/17 18:30 06/05/17 18:31 DC 06/05/17 18:39 4 MG Hyoscyamine Sulfate (Levsin Tab) 0.125 mg NOW STAT SL 06/05/17 18:30 06/05/17 18:31 DC 06/05/17 18:39 0.125 MG Sodium Chloride 1,000 ml @ 999 mls/hr Q1H1M STAT IV 06/05/17 18:30 06/05/17 19:30 DC 06/05/17 18:39 999 MLS/HR Ketorolac Tromethamine (Toradol Inj) 10 mg NOW STAT IV 06/05/17 19:13 06/05/17 19:14 DC 06/05/17 19:22 10 MG ED Course 1823: The patient was evaluated in room B12B. A complete history and physical exam was performed. 1829: Ordered Sodium Chloride 1000 ml @ 999 mls/hr IV, Levsin Tab 0.125 mg SL, Zofran Injection 4 mg IV. 1911: I reevaluated the patient and she reports her left flank pain has returned. I discussed the possibility of a CT scan and she is agreeable. 1912: Ordered Toradol Injection 10 mg IV. 2042: I reevaluated the patient and she is feeling better. I discussed CT and blood tests. We are waiting for her to give urine sample. 2127: I reevaluated the patient and she is comfortable. We are waiting on her to urinate. I gave the patient water. 2245: I reevaluated the patient and she prefers not to wait for the UA since the dip was negative. I discussed the treatment plan with the patient, which she agrees to. The patient will be further evaluated. Medical Decision This is a 22-year-old female who presents with abdominal pain and diarrhea. Differential diagnosis includes enteritis, foodborne illness, dehydration, pancreatitis, kidney stone. I did perform a limited focused review of portions of the patient's old chart on the electronic medical record. The patient has had no recent pertinent visits to this hospital. I did evaluate the patient as noted above. The patient is presenting with left- sided flank pain and abdominal pain with diarrhea. She describes the pain as if she is in labor and as if she has to have a bowel movement. She has no abdominal tenderness on examination. IV access was established. I did treat patient with Zofran IV and normal saline IV. She was also given Levsin. I did order and personally review the patient's urine analysis as described above. I did order and review the patient's blood work as noted in the electronic medical record. Her white blood cell count is slightly elevated. On reassessment she is having increased pain. I did treat her with Toradol IV. I did order a CT of the abdomen and pelvis. I did review the images myself as well as the radiology report as described above. There is no evidence of acute process on CT scanning. I did discuss the test results with the patient. She is feeling much better at this time. I did recommend close follow-up with her doctor. She was discharged in good condition. She was given a prescription for Levsin. Medication Reconcilliation Current Medication List: was personally reviewed by me Blood Pressure Screening Patient's blood pressure: Normal blood pressure Impression Primary Impression: Left flank pain Additional Impression: Diarrhea Scribe Attestation The scribe's documentation has been prepared under my direct and personally reviewed by me in its entirety. I confirm that the note above accurately reflects all work, treatment, procedures, and medical decision making performed by me. Departure Information Dispostion Home / Self-Care Prescriptions Hyoscyamine Sulfate (Levsin) 0.125 Mg Tab 0.125 MG PO Q6 Y for Pain, #15 TAB Prov: Holden Hendrix M.D. 06/05/17 Referrals No Doctor, Assigned (PCP) Forms HOME CARE DOCUMENTATION FORM, IMPORTANT VISIT INFORMATION Patient Instructions ED Flank Pain Uncertain Cause, My [facility] Additional Instructions You have been examined and treated today on an emergency basis only. This is not a substitute for, or an effort to provide, complete comprehensive medical care. It is impossible to recognize and treat all injuries or illnesses in a single emergency department visit. It is therefore important that you follow up closely with your physician. Call as soon as possible for an appointment. Return for worsening symptoms or if you develop fever, vomiting, pain with urination or any other concerning symptoms. Problem Qualifiers Additional Impression: Diarrhea Diarrhea type: unspecified type Qualified Codes: R19.7 - Diarrhea, unspecified
== END 2017-06-05 23:00 | disposition home or self-care (01) ==
LOC: C.EDB 18:19
DX: R10.9 Unspecified abdominal pain (principal); R19.7 Diarrhea, unspecified; R11.2 Nausea with vomiting, unspecified; F17.200 Nicotine dependence, unspecified, uncomplicated